=== PATIENT | male | born 1950 | race Caucasian/White ===

== ENCOUNTER 2022-05-23 05:04 | Emergency (ER) | payer MEDICARE ==
[2022-05-23 05:48] LABS: EOSINOPHILS % (AUTO) 0.4 %; HCT - HEMATOCRIT 36.3 % (42.0-52.0); MEAN CORPUSCULAR VOLUME 72.6 fL (80.0-94.0)
[2022-05-23 05:53] LABS: BASOPHILS # (AUTO) 0.1 10^3/uL (0.0-0.1); BASOPHILS % (AUTO) 0.6 %; HGB - HEMOGLOBIN 10.2 g/dL (14.0-18.0); LYMPHOCYTES # (AUTO) 1.4 10^3/uL (1.5-3.5); LYMPHOCYTES % (AUTO) 13.4 %; MEAN CORPUSCULAR HEMOGLOBIN 20.4 pg (27.0-31.0); MEAN CORPUSCULAR HGB CONC 28.1 g/dL (32.0-36.0); MEAN PLATELET VOLUME 9.7 fL (7.4-11.4); MONOCYTES # (AUTO) 0.8 10^3/uL (0.0-1.0); MONOCYTES % (AUTO) 7.4 %; NEUTROPHILS # (AUTO) 8.3 10^3/uL (1.5-6.6); NEUTROPHILS % (AUTO) 77.8 %; PLT - PLATELET COUNT 299 10^3/uL (130-450); RED CELL DISTRIBUTION WIDTH 18.7 % (12.0-15.0); WHITE BLOOD COUNT 10.7 x10^3/uL (4.8-10.8)
[2022-05-23 06:04] LABS: INR 1.1 (0.8-1.2); PT - PROTHROMBIN TIME 11.8 secs (9.9-12.6)
[2022-05-23 06:07] LABS: ALBUMIN 3.9 g/dL (3.2-5.5); ALBUMIN/GLOBULIN RATIO 1.2 (1.0-2.2); BILIRUBIN,TOTAL 0.7 mg/dL (0.2-1.0); CALCIUM 8.8 mg/dL (8.5-10.3); CREATININE 1.3 mg/dL (0.6-1.2); POTASSIUM 4.1 mmol/L (3.5-5.0); TOTAL PROTEIN 7.2 g/dL (6.7-8.2)
[2022-05-23] MEDS ORDERED: TRANEXAMIC ACID 1,000 MG/10 ML VIAL ONE (06:15)
[2022-05-23] MEDS ORDERED: TRANEXAMIC ACID 1,000 MG/10 ML VIAL NAS STA (06:23)
[2022-05-23 06:28] LABS: PLATELET MORPHOLOGY NORMAL APPEARANCE (NORMAL); SLIDE REVIEW? Indicated
[2022-05-23 06:31] LABS: PLATELET ESTIMATE, MANUAL NORMAL (130-450,000) (NORMAL); WBC MORPHOLOGY (MULTIPLE) NORMAL APPEARANCE (NORMAL)
--- NOTE | 2022-05-23 08:19 | ED Physician Documentation ---
PD HPI GI BLEED - Stated complaint Stated Complaint: MALE GI - Chief complaint Chief Complaint: Abd Pain - History obtained from History obtained from: Patient - Additional information Additional information: The pt comes to the emergency dept with [facility] of [facility] for the past few days after having a large, rock-hard BM. The patient states that he has had increasing episodes of bright red blood whenever he has a bowel movement or passes gas. He states all of his bowel movements have been low-volume and soft since. The patient states that he has anal pain and that he feels as though he has some kristopher y swollen tissue around his anus. He has previously been diagnosed with hemorrhoids, though it is suspected that most of his hemorrhoids are internal. The patient states that he has had spontaneous bleeding at least a couple of times and has bled through his pants overnight. The patient states he has been up all night dealing with the bleeding and that he is feeling a little lightheaded. He is not exactly sure how much blood he is lost in the process. The patient denies any bleeding anywhere else. He is on Plavix long-term for history of coronary artery disease, though he states he has not had any issues in years. He had some numbness in his left arm a couple of months ago which he thought might have been a "small heart attack" but he is not sure. The patient is not sure if he is still bleeding at this point in time. He states that he finally stuffed a wad of tissue paper in his bottom to try to stem the bleeding. Review of Systems Ten Systems: 10 systems reviewed and negative Constitutional: reports: Reviewed and negative Eyes: reports: Reviewed and negative Ears: reports: Reviewed and negative Nose: reports: Reviewed and negative Throat: reports: Reviewed and negative Cardiac: reports: Reviewed and negative Respiratory: reports: Reviewed and negative GI: reports: Bloody / black stool : reports: Reviewed and negative Skin: reports: Reviewed and negative Musculoskeletal: reports: Reviewed and negative Neurologic: reports: Reviewed and negative Psychiatric: reports: Reviewed and negative Endocrine: reports: Reviewed and negative Immunocompromised: reports: Reviewed and negative PD PAST MEDICAL HISTORY - Past Medical History Past Medical History: Yes Cardiovascular: Hypertension, High cholesterol, [place] : Kidney stones Other Past Medical History: Trigeminal Neuralgia - Past Surgical History Past Surgical History: Yes Cardiovascular: Coronary stent, Cardiac catheterization HEENT: Other - Present Medications Home Medications: Ambulatory Orders Medication Instructions Recorded Confirmed Aspirin EC [Ecotrin] 81 mg PO DAILY 05/23/22 05/23/22 Atorvastatin Calcium [Lipitor] 80 mg PO DAILY 05/23/22 05/23/22 Clopidogrel [Plavix] 75 mg PO DAILY 05/23/22 05/23/22 Losartan Potassium 25 mg PO DAILY 05/23/22 05/23/22 Metoprolol Succinate [Kapspargo 50 mg PO DAILY 05/23/22 05/23/22 Sprinkle] carBAMazepine [TEGretol] 200 mg PO BID 05/23/22 05/23/22 - Allergies Allergies/Adverse Reactions: Allergies Allergy/AdvReac Type Severity Reaction Status Date / Time Penicillins Allergy Anaphylaxis Verified 05/23/22 05:10 - Social History Does the pt smoke?: Yes Smoking Status: Current every day smoker Does the pt drink ETOH?: No Does the pt have substance abuse?: No - Immunizations Immunizations are current?: Yes - POLST Patient has POLST: No PD ED PE NORMAL - Vitals Vital signs reviewed: Yes - General General: Alert and oriented X 3, No acute distress, Well developed/nourished - HEENT HEENT: Atraumatic, PERRL, EOMI, Moist mucous membranes - Neck Neck: Supple, no meningeal sign - Respiratory Respiratory: No respiratory distress - Abdomen Abdomen: Soft, Non tender, Non distended - Rectal Rectal: Other (Grossly edematous anal folds and hemorrhoids without evidence of thrombus. Patient has a brisk ooze from the macerated tissue on the right. He has occasional venous cording when he shifts position. No mass on digital rectal exam.) - Derm Derm: Normal color, Warm and dry, No rash - Extremities Extremities: No deformity, No edema - Neuro Neuro: Alert and oriented X 3 - Psych Psych: Normal mood, Normal affect Results - Vitals Vitals: Vital Signs - 24 hr 05/23/22 05/23/22 05/23/22 05:11 05:46 07:15 Temperature 36.6 C Heart Rate 95 78 71 Respiratory 18 18 Rate Blood Pressure 115/58 L 111/72 104/61 O2 Saturation 100 100 100 Oxygen O2 Source Room air - Labs Labs: Laboratory Tests 05/23/22 05/23/22 05/23/22 05:45 05:45 05:45 WBC 10.7 RBC 5.00 Hgb 10.2 L Hct 36.3 L MCV 72.6 L MCH 20.4 L MCHC 28.1 L RDW 18.7 H Plt Count 299 MPV 9.7 Neut # (Auto) 8.3 H Lymph # (Auto) 1.4 L Bowman # (Auto) 0.8 Eos # (Auto) 0.0 Baso # (Auto) 0.1 Absolute Nucleated RBC 0.00 Nucleated RBC % 0.0 Manual Slide Review Indicated WBC Morphology NORMAL APPEARANCE Platelet Estimate NORMAL (130-450,000) Platelet Morphology NORMAL APPEARANCE RBC Morph Micro Appear 1+ HYPOCHROMASIA PT 11.8 INR 1.1 Sodium 139 Potassium 4.1 Chloride 105 Carbon Dioxide 23 Anion Gap 11.0 BUN 15 Creatinine 1.3 H Estimated GFR (MDRD) 55 L Glucose 153 H Calcium 8.8 Total Bilirubin 0.7 AST 21 ALT 10 Alkaline Phosphatase 99 Total Protein 7.2 Albumin 3.9 Globulin 3.3 Albumin/Globulin Ratio 1.2 Lipase 32 PD Medical Decision Making - ED course Complexity details: reviewed results, re-evaluated patient, considered differential, d/w patient ED course: I discussed with the patient that we would place TXA infused gauze and pack the area. In the meantime, we have obtained labs, which show a hemoglobin of 10.2. The plan at this point in time is to repeat a CBC in a couple of hours and then consult Dr. Gonzalez of surgery to come and look at the patient and offer any recommendations. I have discussed with the patient the most likely, he will have to pack the area daily unless he is preparing to have a bowel movement. Most likely, he will need to use a hemorrhoid preparation and wait for the area to heal. We do not have a prior hemoglobin on the patient, so it is not clear whether this anemia has occurred in the short-term or over a longer period of time. The patient is signed out to Dr. Yao at change of shift, pending repeat CBC, reevaluation, and evaluation by surgery.
[2022-05-23 08:46] LABS: BASOPHILS # (AUTO) 0.1 10^3/uL (0.0-0.1); BASOPHILS % (AUTO) 0.6 %; EOSINOPHILS % (AUTO) 0.4 %; HCT - HEMATOCRIT 34.7 % (42.0-52.0); HGB - HEMOGLOBIN 9.9 g/dL (14.0-18.0); LYMPHOCYTES # (AUTO) 2.6 10^3/uL (1.5-3.5); LYMPHOCYTES % (AUTO) 23.7 %; MEAN CORPUSCULAR HEMOGLOBIN 20.6 pg (27.0-31.0); MEAN CORPUSCULAR HGB CONC 28.5 g/dL (32.0-36.0); MEAN CORPUSCULAR VOLUME 72.3 fL (80.0-94.0); MEAN PLATELET VOLUME 9.9 fL (7.4-11.4); MONOCYTES # (AUTO) 1.1 10^3/uL (0.0-1.0); MONOCYTES % (AUTO) 9.9 %; NEUTROPHILS # (AUTO) 7.1 10^3/uL (1.5-6.6); NEUTROPHILS % (AUTO) 65.2 %; PLT - PLATELET COUNT 256 10^3/uL (130-450); RED CELL DISTRIBUTION WIDTH 18.6 % (12.0-15.0); WHITE BLOOD COUNT 10.9 x10^3/uL (4.8-10.8)
[2022-05-23] MEDS: HYDROCORTISONE 25 MG SUPPOSITORY PR STA ×2 (09:43→09:47)
--- NOTE | 2022-05-23 10:41 | ED Physician Documentation ---
ED Addendum - Addendum Addendum: 05/23/22 10:40 The patient states he would like to be discharged. Recheck of his perirectal area showed no further bleeding at this time. Still tenderness with enlarged hemorrhoid externally. They do not appear thrombosed in the sense of not dark- colored and not firm to the touch but they are tender and swollen. I offered surgical consult to evaluate and he would rather go home at this time. Repeat blood count showed no interval change. Vitals remain good. Disposition: The patient discharged home in stable condition Diagnoses: Acute inflamed hemorrhoids with bleeding
[2022-05-23 10:46] VITALS: BP 129/69
--- NOTE | 2022-05-23 12:12 | CONSULTATION NOTE ---
Referring Provider Consult Date: 05/23/22 Chief Complaint - Chief Complaint Chief Complaint: bleeding from hemorrhoids History of Present Illness - History Obtained From Records Reviewed: yes History obtained from: pt Exam Limitations: none - History of Present Illness HPI Comment/Other: history of hemorrhoid problems for many years. history of distant heart stent, carotid artery stenosis and on plavix and aspirin for many years. recent bleeding from hemorrhoids. came to ED. he denies increased hemorrhoid pain or swelling. he has hydrocortisone cream at home. History - Past Medical History Cardiovascular: reports: Hypertension, High cholesterol, [place] : reports: Kidney stones Other Past Medical History: Trigeminal Neuralgia - Past Surgical History Cardiovascular: reports: Coronary stent, Cardiac catheterization HEENT: reports: Other - POLST Patient has POLST: No Meds/Allgy - Home Medications Home Medications: Ambulatory Orders Medication Instructions Recorded Confirmed Aspirin EC [Ecotrin] 81 mg PO DAILY 05/23/22 05/23/22 Atorvastatin Calcium [Lipitor] 80 mg PO DAILY 05/23/22 05/23/22 Clopidogrel [Plavix] 75 mg PO DAILY 05/23/22 05/23/22 Hydrocortisone Supp [Anusol-Hc] 25 mg RC DAILY #5 supp 05/23/22 Losartan Potassium 25 mg PO DAILY 05/23/22 05/23/22 Metoprolol Succinate [Kapspargo 50 mg PO DAILY 05/23/22 05/23/22 Sprinkle] carBAMazepine [TEGretol] 200 mg PO BID 05/23/22 05/23/22 - Allergies Allergies/Adverse Reactions: Allergies Allergy/AdvReac Type Severity Reaction Status Date / Time Penicillins Allergy Anaphylaxis Verified 05/23/22 05:10 Review of Systems - Other Findings Other Findings: 10 pt ros as above otherwise unremarkable denies recent heart problem Exam - Vital Signs Reviewed Vital Signs: Yes Vital Signs: Vital Signs x48h Temp Pulse Resp BP Pulse Ox 05/23/22 10:30 67 18 129/69 100 05/23/22 09:00 66 18 119/62 100 05/23/22 07:15 71 104/61 100 05/23/22 05:46 78 18 111/72 100 05/23/22 05:11 36.6 C 95 18 115/58 L 100 - Physical Exam General Appearance: positive: No acute distress, Alert Eyes Bilateral: positive: PERRL, EOMI, No scleral icterus ENT: positive: No signs of dehydration Neck: positive: No JVD, Trachea midline Respiratory: positive: No respiratory distress Abdomen: positive: Non-tender, No distention Rectal: positive: Other (circumferential enlarged external hemorrhoids and grade 3 internal hemorrhoid with minimal prolapse. no bleeding at time seen however had bleeding this am) Neurologic/Psychiatric: positive: Oriented x3 Conclusion/Plan - Problem List (1) Bleeding hemorrhoids Conclusion/Plan: agree with care. observation until bleeding has stopped. I believe a surgical procedure at this time while on 2 antiplatelet agents would put him at higher risk of further bleeding. 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 primary treatment will be limiting time in the bathroom. he has circumferential swelling and many potential areas that could bleed follow up surgery prn - Lab Results Fish Bones: 05/23/22 08:37 05/23/22 05:45
== END 2022-05-23 11:55 | disposition home or self-care (01) ==
LOC: ED 05:04
DX: K64.8 Other hemorrhoids (principal); I25.10 Atherosclerotic heart disease of native coronary artery without angina pectoris; Z79.02 Long term (current) use of antithrombotics/antiplatelets; I10 Essential (primary) hypertension; E78.00 Pure hypercholesterolemia, unspecified; I25.2 Old myocardial infarction; Z95.5 Presence of coronary angioplasty implant and graft; F17.200 Nicotine dependence, unspecified, uncomplicated; Z79.82 Long term (current) use of aspirin
CPT/HCPCS: 36415; 80053; 83690; 85025; 85610; 99283; 99284